=== PATIENT | male | born 1990 | race Caucasian/White ===

== ENCOUNTER 2017-05-28 08:25 | Emergency (ER) | payer SELFPAY ==
[2017-05-28 08:31] VITALS: TEMP 97.5; O2SAT 100
[2017-05-28 08:32] VITALS: BMI 23.3
--- NOTE | 2017-05-28 09:59 | ED PDOC ---
HPI: General Adult Time Seen by Provider: 05/28/17 09:05 Chief Complaint (Nursing): Back Pain Additional Complaint(s): 26 y/o M c no PMHx p/w back pain since this morning. Patient states he was performing deadlifts yesterday. He reports pain in the R lumbar back, worse with movement or palpation, constant, radiates down R leg. Denies fever, dysuria , nausea, vomiting, motor weakness, leg or saddle numbness, urinary or bowel incontinence or retention. Past Medical History Vital Signs: Last Vital Signs Temp 97.5 F L 05/28/17 08:30 Pulse 91 H 05/28/17 08:30 Resp 20 05/28/17 08:30 BP 149/98 H 05/28/17 08:30 Pulse Ox 100 05/28/17 08:30 - Family History Family History: States: No Known Family Hx - Home Medications Home Medications: Ambulatory Orders Medication Instructions Recorded Cyclobenzaprine [Cyclobenzaprine 10 mg PO Q8H PRN #15 tab 05/28/17 HCl] Famotidine [Pepcid] 1 tab PO BID #14 tab 05/28/17 Ibuprofen [Motrin] 600 mg PO Q6 #25 tab 05/28/17 - Allergies Allergies/Adverse Reactions: Allergies Allergy/AdvReac Type Severity Reaction Status Date / Time No Known Allergies Allergy Verified 05/28/17 08:39 Review of Systems ROS Statement: Except As Marked, All Systems Reviewed And Found Negative Constitutional: Negative for: Fever Respiratory: Negative for: Shortness of Breath Physical Exam - Physical Exam Comments: Gen: NAD Head: NC/AT Eyes: No scleral icterus ENT: MMM Neck: No midline tenderness Chest: No tenderness CV: Regular rate Lungs: CTA b/l Abd: Soft, NT, ND Back: R lumbar tenderness, no midline tenderness. Positive straight leg raise on R. Skin: No rash or ecchymosis Extremities: No edema Neuro: Alert, no focal deficit. Sensation to light touch intact in bilateral lower legs and saddle area. Motor 5/5 x 4. - ECG O2 Sat by Pulse Oximetry: 100 Medical Decision Making Medical Decision Making: Symptoms consistent with muscle strain with sciatica. Will discharge home, continue medications, f/u primary care, instructed to return to ED for any fever , dysuria, numbness, weakness, urinary or bowel changes. Toradol and Flexeril administered in ED, patient states he feels better. Disposition - Clinical Impression Clinical Impression: Low back pain - Patient ED Disposition Is Patient to be Admitted: No - Disposition Referrals: [facility] [Outside] Disposition: Routine/Home Disposition Time: 10:04 Condition: STABLE Prescriptions: Cyclobenzaprine [Cyclobenzaprine HCl] 10 mg PO Q8H PRN #15 tab PRN Reason: Pain, Moderate (4-7) Famotidine [Pepcid] 1 tab PO BID #14 tab Ibuprofen [Motrin] 600 mg PO Q6 #25 tab Instructions: Muscle Strain (DC), Sciatica, Low Back Pain in Adults
[2017-05-28 10:07] VITALS: BP 135/80; PULSE 82; RESP 16
== END 2017-05-28 10:14 | disposition home or self-care (01) ==
LOC: H.ER 08:25
DX: M54.5 Low back pain (principal)
CPT/HCPCS: 96372; 99283; J1885